=== PATIENT | male | born 1995 | race Caucasian/White ===

== ENCOUNTER 2023-07-28 08:08 | Emergency (ER) | payer OTHER ==
[~2023-07-28] VITALS: Ht 177.8 cm; Wt 50.1 kg
[2023-07-28 09:28] LABS: BILIRUBIN,URINE NEGATIVE (Neg); CLARITY,URINE CLEAR (Clear); COLOR,URINE YELLOW (Yellow); GLUCOSE, URINE 500 mg/dl (Neg); KETONES,URINE >=80 mg/dl (Neg); LEUKOCYTE ESTERASE ,URINE NEGATIVE (Neg); NITRITES, URINE NEGATIVE (Neg); OCCULT BLOOD,URINE SMALL (Neg); PROTEIN,URINE 30 mg/dl (Neg); UROBILINOGEN,URINE 0.2 E.U/dL (0.2-1.0)
[2023-07-28 09:35] LABS: UA COLLECTION TYPE CLN CATCH MIDSTREAM
[2023-07-28 09:36] LABS: SQUAMOUS EPITHELIAL CELL,UR FEW /LPF (FEW); WBC,URINE 0-4 /HPF (0-4)
[2023-07-28 09:37] LABS: BACTERIA,URINE NONE SEEN /HPF (Neg)
[2023-07-28 09:42] LABS: URINE AMPHETAMINE SCREEN NEGATIVE (Neg); URINE BARBITUATE SCREEN NEGATIVE (Neg); URINE BENZODIAZEPINES SCREEN NEGATIVE (Neg); URINE CANNABINOID SCREEN NEGATIVE (Neg); URINE COCAINE SCREEN NEGATIVE (Neg); URINE METHADONE SCREEN NEGATIVE (Neg); URINE OPIATE SCREEN NEGATIVE (Neg); URINE PHENCYCLIDINE SCREEN NEGATIVE (Neg)
[2023-07-28 09:59] LABS: BASOPHILS % (AUTO) 0.7 % (0-1); EOSINOPHILS # (AUTO) 0.2 X10'3 (0-0.9); EOSINOPHILS % (AUTO) 2.5 % (0-6); HEMATOCRIT 50.5 % (42.0-52.0); LYMPHOCYTES # (AUTO) 1.4 X10'3 (1.1-4.8); LYMPHOCYTES % (AUTO) 19.4 % (21-51); MEAN CORPUSCULAR HEMOGLOBIN 36.6 PG (27.0-31.0); MEAN CORPUSCULAR HGB CONC 33.7 g/dL (33.0-36.5); MEAN CORPUSCULAR VOLUME 108.5 FL (78-98); MEAN PLATELET VOLUME 7.4 FL (7.4-10.4); MONOCYTES # (AUTO) 0.6 X10'3 (0-0.9); MONOCYTES % (AUTO) 8.4 % (2-12); PLATELET COUNT 217 X10'3 (140-440); RED BLOOD COUNT 4.66 X10'6 (4.70-6.10); WHITE BLOOD COUNT 7.2 X10'3 (4.5-11.0)
[2023-07-28 10:12] LABS: ALANINE AMINOTRANSFERASE 228 U/L (12-78); ALKALINE PHOSPHATASE 219 IU/L (46-116); ANION GAP 21 (8-16); ASPARTATE AMINO TRANSFERASE 225 U/L (10-37); BILIRUBIN,TOTAL 1.2 MG/DL (0.1-1.0); BLOOD UREA NITROGEN 15 MG/DL (7-18); CALCIUM 9.8 MG/DL (8.5-10.1); CHLORIDE 95 MMOL/L (99-107); GLUCOSE 343 MG/DL (70-104); SODIUM 133 MMOL/L (135-145); TOTAL CARBON DIOXIDE 17.2 MMOL/L (24-32); TOTAL PROTEIN 7.9 G/DL (6.4-8.2); eCRCL 78 ML/MIN; eGFR 89 ML/MIN
[2023-07-28 10:22] LABS: ETHANOL < 10 MG/DL (<10); SALICYLATE 4.2 MG/DL (4.0-20.0); THYROID STIMULATING HORMONE 0.97 ulU/ml (0.34-4.50)
[2023-07-28 10:33] LABS: POTASSIUM 4.7 MMOL/L (3.5-5.1)
[2023-07-28 10:35] LABS: ACETAMINOPHEN < 2.0 UG/ML (10-30)
[2023-07-28] MEDS ORDERED: LAMO25TA4 PO (11:30)
[2023-07-28 11:48] VITALS: BP 136/106; PULSE 104; RESP 16; TEMP 98.3; O2SAT 96
[2023-07-29] MEDS ORDERED: lamoTRIgine 25mg tablet PO SCH (08:00)
== END 2023-07-28 11:52 | disposition home or self-care (01) ==
LOC: ER 08:08
DX: F32.A Depression, unspecified (principal); Z88.8 Allergy status to other drugs, medicaments and biological substances; Z20.822 Contact with and (suspected) exposure to COVID-19
CPT/HCPCS: 36415; 80053; 80305; 80320; 80329; 81001; 84443; 85025; 87811; 99284